=== PATIENT | male | born 2000 | race Caucasian/White ===

== ENCOUNTER 2019-01-25 03:25 | Inpatient (IN) | payer OTHER ==
[~2019-01-25] VITALS: Ht 177.8 cm; Wt 95.3 kg
[2019-01-25 03:25] VITALS: BP 153/68
--- NOTE | 2019-01-25 03:25 | NUR ---
18/M BIB [facility] FROM HOME, S/P 3 EPISODES OF NEW ONSET SEIZURE (1X WITNESSED AT HOME, UNKNOWN IN DURATION, 2X PREHOSPITAL APPROX 1MIN DURATION EACH). WAS GIVEN 5MG VERSED IM. PT ARRIVES TO ED, POST-ICTAL, UNRESPONSIVE AT THIS TIME, GCS 3, 2MM PERRL, SPO2 80% ON RA, PLACED ON 15L NONREBREATHER, IMPROVED TO SPO2 94%, RR 41 EVEN AND LABORED. BP 153/67, HR 131. LUNG SOUNDS CLEAR BL. NO ORAL/TONGUE TRAUMA NOTED, NO BLEEDING. SEIZURE PADS IN PLACE. 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
--- NOTE | 2019-01-25 03:28 | NUR ---
DR ROONEY AT BEDSIDE. ER MD PLACED SIZE 9 OPA WITH NO COMPLICATIONS. SPO2 94% ON NONREBREATHER.
--- NOTE | 2019-01-25 03:45 | NUR ---
PT'S MOTHER AT BEDSIDE
[2019-01-25] MEDS ORDERED: levETIRAcetam 500 MG in NACL 0.9% 100 ML IV ONE (03:55)
--- NOTE | 2019-01-25 03:55 | NUR ---
PT REGAINING CONSCIOUSNESS, OPA REMOVED. 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 SPO2 94% ON O2 15L NONREBREATHER, RR 30 EVEN AND SLIGHTLY LABORED.
[2019-01-25 04:00] LABS: APPEARANCE,URINE CLEAR (CLEAR); BILIRUBIN,URINE NEGATIVE (NEGATIVE); BLOOD, URINE 2+ (NEGATIVE); COLOR,URINE YELLOW (YELLOW); LEUKOCYTE ESTERASE ,URINE NEGATIVE (NEGATIVE); NITRITE, URINE NEGATIVE (NEGATIVE); UGLUCOSE NEGATIVE (NEGATIVE)
--- NOTE | 2019-01-25 04:02 | NUR ---
PT TAKEN TO CT
[2019-01-25 04:07] LABS: BARBITURATE, URINE NEG. ng/ml (NEG <=200); BENZODIAZEPINE, URINE NEG. ng/mL (NEG <=200); CANNABINOID, URINE NEG. ng/mL (NEG <=50); COCAINE, URINE NEG. ng/mL (NEG <=300); OPIATE, URINE NEG. ng/mL (NEG <=2000); PHENCYCLIDINE SCREEN,URINE NEG. ng/mL (NEG <=25)
[2019-01-25] MEDS ORDERED: levETIRAcetam 100 MG/ML VIAL IV ONE (04:07)
[2019-01-25 04:20] LABS: ALBUMIN 3.9 g/dL (3.4-5.0); ANION GAP 35.2 (8-16); ASPARTATE AMINOTRANSFERASE 28 U/L (15-37); CARBON DIOXIDE 10.5 mmol/L (21-32); CHLORIDE 98 mmol/L (98-107); CREATININE 1.4 mg/dL (0.7-1.3); GFR ARICAN-AMERICAN 83 mL/min (>90); GLUCOSE 244 mg/dL (74-106); HEMATOCRIT 50.8 % (36-52); HEMOGLOBIN 15.7 g/dL (12.0-18.0); MEAN CORPUSCULAR HEMOGLOBIN 29 pg (27-31); MEAN CORPUSCULAR HGB CONC 31 g/dL (33-37); MEAN CORPUSCULAR VOLUME 92.7 fL (80-94); PLATELET COUNT (AUTO) 444 K/uL (140-450); POTASSIUM 3.7 mmol/L (3.5-5.1); RED BLOOD CELL COUNT(AUTO) 5.48 MIL/uL (4.20-6.10); RED CELL DISTRIBUTION WIDTH 15.1 % (11.6-13.7); SODIUM SERUM 140 mmol/L (136-145); TOTAL BILIRUBIN 0.2 mg/dL (0.0-1.0); UREA NITROGEN, BLOOD 13 mg/dL (7-18)
--- NOTE | 2019-01-25 04:26 | NUR ---
PT BACK FROM CT
--- NOTE | 2019-01-25 04:30 | NUR ---
PT REMAINS IN POST-ICTAL STATE, SPO2 95% ON 15L O2 NONREBREATHER, RR 22 EVEN AND SLIGHTLY LABORED. REPORTS MILD CHEST AND BACK PAIN. NOTED COUGH X2 DAYS.
--- NOTE | 2019-01-25 04:35 | NUR ---
CXR PERFORMED AT BEDSIDE
--- NOTE | 2019-01-25 04:37 | NUR ---
DR ROONEY AT BEDSIDE
[2019-01-25 04:38] LABS: RBC,URINE 0-5 /HPF (0-5); WBC,URINE 0-5 /HPF (0-5)
[2019-01-25 04:42] LABS: WHITE BLOOD COUNT (AUTO) 30.9 K/uL (4.5-11.0)
[2019-01-25 04:43] LABS: EOSINOPHILS % (MANUAL) 2 % (0-4); LYMPHOCYTES % (MANUAL) 64 % (20-46); MONOCYTES % (MANUAL) 3 % (5-12)
--- NOTE | 2019-01-25 05:43 | NUR ---
LARGE EMESIS NOTED, DR ROONEY MADE AWARE. MEDICATION ORDERED.
[2019-01-25] MEDS ORDERED: ONDANSETRON 4 MG/2 ML VIAL IVP ONE (05:45)
--- NOTE | 2019-01-25 05:50 | NUR ---
PT WITH EPISODE OF VOMITING. ADMINISTERED ZOFRAN IVP WITH EDUCATION. PT CLEANED, GOWN CHANGED. SPO2 96% ON 5L O2 NC, RR 22 EVEN AND UNLABORED AT THIS TIME. ALL NEEDS MET.
[2019-01-25] MEDS ORDERED: PIPERACILLIN/TAZOBACTAM 3.375 GM in DEXTROSE 5% 50 ML IV ONE (06:20)
[2019-01-25] MEDS ORDERED: VANCOMYCIN 1,000 MG in DEXTROSE 5% 250 ML IV ONE (06:20)
[2019-01-25] MEDS ORDERED: PIPERACILLIN/TAZOBACTAM 3.375 GM VIAL IV ONE (06:38)
[2019-01-25] MEDS ORDERED: VANCOMYCIN 1,000 MG VIAL ONE (06:38)
[2019-01-25] MEDS ORDERED: NACL 0.9% IV ONE (06:40)
--- NOTE | 2019-01-25 06:44 | NUR ---
PT LAYING IN BED, SLEEPING, AROUSABLE TO NAME, LETHARGIC. VSS. SPO2 99% ON 5L NC, RR 17 EVEN AND UNLABORED. ALL NEEDS MET AT THIS TIME.
--- NOTE | 2019-01-25 07:18 | NUR ---
Pt report given to REUBEN CRAIG. Transfer of care at this time.
[2019-01-25 08:00] VITALS: BP 136/84
--- NOTE | 2019-01-25 08:00 | NUR ---
REPORT RECEIVED FROM ER NURSE AT BEDSIDE FOR CONTINIUTY OF CARE. PATIENT AWAKE BUT DROWSY. IV SITE INTACT PATENT AND SYMPTOMATIC CURRENTLY STILL INFUSING NS BOLUS AND VANCO IVPB FROM ER. PATIENT TOLERATING IT WELL. PATIENT DIAGNOSED WITH ONSET OF SEIZURES. PATIENT C/O PAIN, WILL PAGE DR. ORTEZ FOR PRN PAIN MEDICATION. SISTER TAHIR, FATHER AND MOTHER AT BEDSIDE. MRSA SCREENING DONE. UPDATED BOARD. UPDATED PATIENT AND FAMILY MEMBERS WITH PLAN OF CARE, THEY VERBALIZED UNDERSTANDING. SAFETY AND SEIZURE PRECAUTIONS IN PLACE, CALL LIGHT ARSEN ASCENCIO, WILL CONTINUE TO MONITOR PATIENT.
--- NOTE | 2019-01-25 08:08 | NUR ---
Pt transferred to Tele via [facility] room 118 report given to ADILENE ALEXIS
[2019-01-25] MEDS ORDERED: ACETAMINOPHEN 325 MG TAB PO PRN (08:45)
[2019-01-25] MEDS: NACL 0.9% 1,000 ML IV SCH ×2 (08:45→22:47)
[2019-01-25] MEDS ORDERED: LORazepam 2 MG/ML VIAL IM/IVP PRN (08:45)
--- NOTE | 2019-01-25 08:45 | NUR ---
PAGED DR. ORTEZ AT [phone], HE CALLED BACK AT [phone]. NEW ORDERS IN, WILL FOLLOW ORDERED.
--- NOTE | 2019-01-25 08:53 | NUR ---
PATIENT C/O PAIN, PRN PAIN MEDICATION GIVEN ORDERED. PATIENT TOLERATED IT. WILL CONTINUE TO MONITOR PATIENT.
[2019-01-25] MEDS: HYDROcodone/APAP 5/325 MG 1 TAB TAB PO PRN ×2 (08:57→15:31)
[2019-01-25] MEDS ORDERED: levETIRAcetam 500 MG in NACL 0.9% 100 ML IV SCH (09:00)
--- NOTE | 2019-01-25 09:56 | NUR ---
ORDERED MEDICATION GIVEN. PATIENT TOLERATING IT. FAMILY AT BEDSIDE, PATIENT MEDICATED FOR PAIN AT 0853. RESPIRATIONS EVEN AND UNLABORED ON ROOM AIR. SAFETY AND SEIZURE PRECAUTIONS IN PLACE, CALL LIGHT WITHIN REACH, WILL CONTINUE TO MONITOR PATIENT.
[2019-01-25] MEDS ORDERED: KETOROLAC 30 MG/ML VIAL IVP PRN (11:20)
--- NOTE | 2019-01-25 11:20 | NUR ---
DR. ORETZ IN TO SEE THE PATIENT. WILL WAIT FOR HIS UPDATED ORDERS.
[2019-01-25 12:00] VITALS: BP 135/85
--- NOTE | 2019-01-25 12:15 | NUR ---
PATIENT CURRENTLY AWAKE AND ATTEMPTING TO EAT LUNCH, FAMILY MEMBERS AT BEDSIDE. SAFETY AND SEIZURE PRECAUTIONS IN PLACE, CALL LIGHT WITHIN REACH, WILL CONTINUE TO MONITOR PATIENT.
[2019-01-25] MEDS: ONDANSETRON 4 MG/2 ML VIAL IVP PRN ×2 (15:26→21:14)
--- NOTE | 2019-01-25 15:31 | NUR ---
PATIENT VOMITED, PRN ZOFRAN GIVEN. PATIENT ALSO C/O BACK AND ABDOMINAL PAIN, PRN NORCO GIVEN. PATIENT TOLERATING IT. SAFETY AND SEIZURE PRECAUTIONS IN PLACE, CALL LIGHT WITHIN REACH, WILL CONTINUE TO MONITOR PATIENT.
[2019-01-25 16:00] VITALS: BP 116/84
--- NOTE | 2019-01-25 16:10 | NUR ---
DR. RESTREPO CALLED. UPDATED HIM ABOUT PATIENT'S STATUS, HE VERBALIZED UNDERSTANDING AND ORDERED EEG. INFORMED PATIENT'S FAMILY. THEY ARE AWARE. PATIENT CURRENTLY RESTING IN BED, NO SIGN OF DISTRESS AT THIS TIME, STILL IN PAIN. SAFETY AND SEIZURE PRECAUTIONS IN PLACE, CALL LIGHT WITHIN REACH, WILL CONTINUE TO MONITOR PATIENT.
--- NOTE | 2019-01-25 16:46 | NUR ---
PT STILL C/O PAIN, PRN TORADOL GIVEN. PATIENT TOLERATING IT. WILL REASSESS. FAMILY AT BEDSIDE. SAFETY AND SEIZURE PRECAUTIONS IN PLACE, CALL LIGHT WITHIN REACH, WILL CONTINUE TO MONITOR PATIENT.
--- NOTE | 2019-01-25 17:50 | NUR ---
PATIENT RESTING IN BED WITH EYES CLOSED, NO SIGN OF DISTRESS OR SOB NOTED. FAMILY AT BEDSIDE. SAFETY AND SEIZURE PRECAUTIONS IN PLACE, CALL LIGHT WITHIN REACH, WILL CONTINUE TO MONITOR PATIENT.
--- NOTE | 2019-01-25 19:25 | NUR ---
REPORT GIVEN AT BEDSIDE TO TOBACCO ROLLER NURSE FOR CONTINUITY OF CARE. PATIENT IN STABLE CONDITION, FAMILY AND SISTER AT BEDSIDE.
--- NOTE | 2019-01-25 19:26 | NUR ---
RECEIVED REPORT FROM DAY SHIFT NURSE. AAOX4. NO C/O PAIN OR NAUSEA/VOMITING AT THIS TIME. NO SOB NOTED. ON ROOM AIR. IV TO LEFT AC #20G, NS AT 75 ML/HR INFUSING WELL. SKIN INTACT. FAMILY AT BEDSIDE. DISCUSSED PLAN OF CARE, PT AND FAMILY VERBALIZED UNDERSTANDING. FALL AND SEIZURE PRECAUTIONS IN PLACE. CALL LIGHT WITHIN REACH.
--- NOTE | 2019-01-25 19:35 | NUR ---
FEATURES REPORTER HERE FOR EEG. PT'S FAMILY AT BEDSIDE.
[2019-01-25 20:00] VITALS: BP 115/70
--- NOTE | 2019-01-25 20:45 | NUR ---
EEG DONE. PT C/O ABDOMINAL PAIN 8/10, NAUSEA AND VOMITING X1. PRN PAIN MEDS AND PRN FOR NAUSEA/VOMITING NOT DUE YET. PT ALSO C/O REDNESS TO RIGHT PART OF RIGHT EYE, DENIES PAIN OR BLURRY VISION. WILL PAGE DR. ORTEZ FOR ORDERS.
--- NOTE | 2019-01-25 20:50 | NUR ---
RECEIVED A CALL FROM DR. ORTEZ. RECEIVED ORDER FOR MORPHINE 2 MG IVP Q4HRS PRN FOR SEVERE PAIN. MADE AWARE THAT ZOFRAN IS NOT DUE YET BUT PT C/O NAUSEA AND VOMITING. PER , IT'S OKAY TO GIVE THE PRN ZOFRAN NOW. FOR THE RED EYE, PER DR. ORTEZ, HE WILL CHECK IT TOMORROW.
[2019-01-25] MEDS: MORPHINE SULFATE 2 MG/ML SYR IVP PRN (21:14)
[2019-01-25] MEDS: levETIRAcetam 500 MG in NACL 0.9% 100 ML IV SCH (21:15)
--- NOTE | 2019-01-25 23:00 | NUR ---
PT SLEEPING. NO S/S OF PAIN. NO S/S OF RESP DISTRESS NOTED. PT'S FATHER AT BEDSIDE.
[2019-01-26] VITALS (7 sets, daily range): BP systolic 104–124; BP diastolic 53–76
[2019-01-26] MEDS: MORPHINE SULFATE 2 MG/ML SYR IVP PRN ×5 (02:17→20:31)
[2019-01-26] MEDS: ONDANSETRON 4 MG/2 ML VIAL IVP PRN ×2 (02:23→08:26)
--- NOTE | 2019-01-26 02:23 | NUR ---
PT C/O ABDOMINAL AND BACK PAIN 05/28. PT C/O NAUSEA. MORPHINE 2 MG IVP GIVEN FOR PAIN. ZOFRAN 4 MG IVP GIVEN FOR NAUSEA. PT TOLERATED WELL.
--- NOTE | 2019-01-26 04:30 | NUR ---
PT SLEEPING BUT WAKES EASILY. RESP EVEN AND UNLABORED. NO S/S OF PAIN.
--- NOTE | 2019-01-26 06:00 | NUR ---
PT SLEEPING. NO S/S OF SEIZURE ACTIVITY. NO S/S OF RESP DISTRESS OR PAIN.
--- NOTE | 2019-01-26 06:50 | NUR ---
PT C/O BACK AND ABDOMINAL PAIN 05/28. V/S CHECKED, WNL. MORPHINE 2 MG IVP GIVEN.
[2019-01-26 07:12] LABS: BASOPHILS % (AUTO) 0.3 % (0.0-2.0); EOSINOPHILS % (AUTO) 0.3 % (0.0-4.0); HEMATOCRIT 40.8 % (36-52); HEMOGLOBIN 13.5 g/dL (12.0-18.0); LYMPHOCYTES % (AUTO) 17.6 % (20.5-51.1); MEAN CORPUSCULAR HEMOGLOBIN 29 pg (27-31); MEAN CORPUSCULAR HGB CONC 33 g/dL (33-37); MEAN CORPUSCULAR VOLUME 87.7 fL (80-94); MONOCYTES # (AUTO) 1.2 K/uL (0.8-1.0); MONOCYTES % (AUTO) 10.8 % (1.7-9.3); PLATELET COUNT (AUTO) 251 K/uL (140-450); RED BLOOD CELL COUNT(AUTO) 4.65 MIL/uL (4.20-6.10); RED CELL DISTRIBUTION WIDTH 14.5 % (11.6-13.7); WHITE BLOOD COUNT (AUTO) 11.3 K/uL (4.5-11.0)
--- NOTE | 2019-01-26 07:21 | NUR ---
RECEIVED REPORT FROM ABSENCE MANAGEMENT CONSULTANT NURSE. PT IS AAOX4. NO C/O PAIN AT THIS TIME. NO SOB NOTED. ON ROOM AIR. IV TO LEFT AC #20G, NS AT 75 ML/HR INFUSING WELL. SKIN INTACT. FAMILY AT BEDSIDE. DISCUSSED PLAN OF CARE, PT AND FAMILY VERBALIZED UNDERSTANDING. FALL AND SEIZURE PRECAUTIONS IN PLACE. CALL LIGHT WITHIN REACH.
[2019-01-26 07:27] LABS: POTASSIUM 4.1 mmol/L (3.5-5.1)
[2019-01-26 07:28] LABS: ANION GAP 14.4 (8-16); CARBON DIOXIDE 26.7 mmol/L (21-32); CREATININE 1.5 mg/dL (0.7-1.3)
--- NOTE | 2019-01-26 07:35 | NUR ---
ENDORSED PT TO DAY SHIFT NURSE. PT IN STABLE CONDITION.
--- NOTE | 2019-01-26 07:47 | NUR ---
PATIENT HAS BEEN SCREENED AND CATEGORIZED MODERATE NUTRITION RISK. PATIENT WILL BE SEEN WITHIN 3-5 DAYS OF ADMISSION. 01/28/[address]
[2019-01-26] MEDS: levETIRAcetam 500 MG in NACL 0.9% 100 ML IV SCH ×2 (08:26→20:35)
[2019-01-26] MEDS: ENOXAPARIN 40 MG/0.4 ML SYR SUBQ SCH (08:27)
--- NOTE | 2019-01-26 08:29 | NUR ---
ADMINISTERED MORNING MEDS TO PT. PT TOLERATED THEM WELL. ALL NEEDS CURRENTLY MET. PT MOM AT BEDSIDE. WILL CONTINUE TO ROUND FREQUENTLY. BED IN LOW POSITION, CALL LIGHT WITHIN REACH.
--- NOTE | 2019-01-26 11:08 | NUR ---
PT RESTING IN BED. ALL NEEDS CURRENTLY MET. WILL CONTINUE TO ROUND ON PT. BED IN LOW POSITION, CALL LIGHT WITHIN REACH. SEIZURE AND FALL PRECAUTIONS IN PLACE.
[2019-01-26] MEDS: NACL 0.9% 1,000 ML IV SCH (12:15)
--- NOTE | 2019-01-26 19:36 | NUR ---
ENDORSED PT TO ASSISTANT MANAGER TRAINEE FOR CONTINUITY OF CARE. PT IN STABLE CONDITION.
--- NOTE | 2019-01-26 19:37 | NUR ---
RECEIVED PT FROM TANISHA ALEXIS PT AAOX4 ON BED REST ON TELEMETRY SR NOT SEIZURES ACTIVITY NOTED IV ON LEFT ARM INFUSING WELL PARENTS AT BED SIDE INITIAL ASSESSMENT DONE
--- NOTE | 2019-01-26 21:30 | NUR ---
AFTER PAIN MEDIC GIVEN PT SLEEPING WELL NOT DISTRESS NOTED ON TELEMETRY SR PARENTS AT BED SIDE
[2019-01-27] VITALS: BP 115/76
--- NOTE | 2019-01-27 | NUR ---
PT WATCHING TV IV ON LEFT ARM INFUSING WELL, RELATIVE AT BED SIDE , ON TELEMETRY SR NOT SEIZURES ACTIVITY NOTED.
[2019-01-27] MEDS: NACL 0.9% 1,000 ML IV SCH ×2 (02:25→14:10)
[2019-01-27] MEDS: MORPHINE SULFATE 2 MG/ML SYR IVP PRN (02:41)
--- NOTE | 2019-01-27 03:13 | NUR ---
PT SLEEPING WELL AFTER PAIN MEDIC GIVEN
[2019-01-27 04:00] VITALS: BP 100/59
--- NOTE | 2019-01-27 05:00 | NUR ---
SPONGE BATH GIVEN LINEN CHANGED ON TELMETRY SR NOT DISTRESS NOTED
--- NOTE | 2019-01-27 06:31 | NUR ---
PT WILL BE ENDORSED TO DAY SHIFT NURSE FOR CONTINUE CARE
--- NOTE | 2019-01-27 07:20 | NUR ---
GOT BEDSIDE REPORT FROM REUBEN MEDINA. PATIENT ON TELE MONITOR AND STANDARD PRECAUTIONS IN PLACE. PATIENT AAOX4 AND ON 2 L O2 VIA NC. SKIN INTACT. IV ON L AC 20 G INFUSING NS AT 75, IV ASYMPTOMATIC PATENT AND INTACT. FALL RISK PROTOCOL IN PLACE. BED IN LOW POSITION, CALL LIGHT WITHIN REACH, SIDE RAILS X2 UP
[2019-01-27 08:00] VITALS: BP 103/63
[2019-01-27 08:25] LABS: BASOPHILS % (AUTO) 0.2 % (0.0-2.0); EOSINOPHILS # (AUTO) 0.1 K/uL (0-0.4); EOSINOPHILS % (AUTO) 0.9 % (0.0-4.0); HEMATOCRIT 39.3 % (36-52); HEMOGLOBIN 13.1 g/dL (12.0-18.0); LYMPHOCYTES # (AUTO) 1.9 K/uL (2.0-11.5); LYMPHOCYTES % (AUTO) 21.5 % (20.5-51.1); MEAN CORPUSCULAR HEMOGLOBIN 30 pg (27-31); MEAN CORPUSCULAR HGB CONC 34 g/dL (33-37); MEAN CORPUSCULAR VOLUME 88.3 fL (80-94); MONOCYTES # (AUTO) 0.9 K/uL (0.8-1.0); MONOCYTES % (AUTO) 10.6 % (1.7-9.3); NEUTROPHILS # (AUTO) 5.9 K/uL (1.8-7.7); NEUTROPHILS % (AUTO) 66.8 % (42.2-75.2); PLATELET COUNT (AUTO) 240 K/uL (140-450); RED BLOOD CELL COUNT(AUTO) 4.45 MIL/uL (4.20-6.10); RED CELL DISTRIBUTION WIDTH 14.5 % (11.6-13.7); WHITE BLOOD COUNT (AUTO) 8.8 K/uL (4.5-11.0)
[2019-01-27] MEDS: levETIRAcetam 500 MG in NACL 0.9% 100 ML IV SCH (09:05)
[2019-01-27] MEDS: ENOXAPARIN 40 MG/0.4 ML SYR SUBQ SCH (09:19)
--- NOTE | 2019-01-27 09:34 | NUR ---
ADMINISTERED SCHEDULED MEDS. PATIENT TOLERATED WELL. CALLED PHARMACY REGARDING KEPPRA. A NEW BAG OF KEPPRA WILL BE MADE
--- NOTE | 2019-01-27 10:35 | NUR ---
DR. ORTEZ AT BEDSIDE DISCUSSING PLAN OF CARE WITH PATIENT AND MOTHER AT BEDSIDE
[2019-01-27] MEDS ORDERED: KEP500 PO (10:44)
[2019-01-27] MEDS ORDERED: AMOX-999 PO (10:44)
[2019-01-27 12:00] VITALS: BP 125/78
[2019-01-27] MEDS ORDERED: INFLUENZA VIRUS VACCINE QUAD 0.5 ML SYR IMVAC PRN (13:20)
--- NOTE | 2019-01-27 14:50 | NUR ---
DISCHARGE INSTRUCTIONS GIVEN TO PATIENT. INSTRUCTED PATIENT TO FOLLOW UP WITH PCP REGARDING SLEEP EVALUATION. FLU VACCINE GIVEN AT DISCHARGE AND NOT CANDIDATE FOR PNA VACCINE. SKIN INTACT. INSTRUCTED TO RETURN TO NEAREST ER WHEN EXPERIENCING SOB, FEVER, PAIN, SEIZURES AND TO START TAKING NEW PRESCRIBED MEDS. ANSWERED ALL QUESTIONS AND CONCERNS. REMOVED WRIST BANDS, TELE MONITOR, AND IV. IV TIP INTACT.
== END 2019-01-27 14:50 | disposition home or self-care (01) | DRG 53 ==
LOC: MED 03:25 → MTU 07:22
PROVIDERS: ADMIT Internal Medicine Pulmonary Disease; ATTEND Internal Medicine Pulmonary Disease
PROC: 4A00X4Z Measurement of Central Nervous Electrical Activity, External Approach (ICD-10-PCS; principal; 2019-01-26)
PROC: 3E02340 Introduction of Influenza Vaccine into Muscle, Percutaneous Approach (ICD-10-PCS; 2019-01-27)
DX: R56.9 Unspecified convulsions (principal); J69.0 Pneumonitis due to inhalation of food and vomit; E87.2 Acidosis; E66.01 Morbid (severe) obesity due to excess calories; G47.33 Obstructive sleep apnea (adult) (pediatric); E86.0 Dehydration; R09.02 Hypoxemia; Z68.30 Body mass index [BMI] 30.0-30.9, adult; Z23 Encounter for immunization
CPT/HCPCS: 36415; 70450; 71045; 80048; 80053; 80305; 81001; 83605; 85025; 87040; 87081; 87086; 95816; 96361; 96365; 96375; 99285; C1758; G0482; J0696; J1650; J1885; J1953; J2270; J2405; J2543; J3370; J7030; J7060; Q0092